=== PATIENT | female | born 1950 | race Asian ===

== ENCOUNTER 2020-10-20 13:51 | Emergency (ER) | payer OTHER, MEDICAID ==
[~2020-10-20] VITALS: Ht 152.4 cm; Wt 40.8 kg
[2020-10-20 14:33] VITALS: BP 142/84
--- NOTE | 2020-10-20 14:42 | NUR ---
70 y/o female bib son in law for cough and sob x 5 days. Pts family states + covid contact in the home. RR even and unlabored. Denies pain. Awake and alert. VSS
[2020-10-20 15:56] VITALS: BP 135/81
--- NOTE | 2020-10-20 15:56 | NUR ---
Patient discharged with v/s stable. Written and verbal after care instructions given and explained. Patient verbalized understanding. Ambulatory with steady gait. All questions addressed prior to discharge. Advised to follow up with PMD. Novel covid swab collected and sent to the lab. No other nurisng care provided in our ER.
--- NOTE | 2020-10-24 17:50 | NUR ---
Covid results received from lab. Results = POSITIVE. Hard copy requested from lab and placed in infection controls mailbox.
== END 2020-10-20 15:56 | disposition home or self-care (01) ==
LOC: MED 13:51
DX: U07.1 COVID-19 (principal)
CPT/HCPCS: 71045; 99284; U0003

== ENCOUNTER 2023-11-18 15:07 | Inpatient (IN) | payer OTHER ==
[~2023-11-18] VITALS: Ht 149.9 cm; Wt 45.4 kg
[2023-11-18 15:27] VITALS: BP 141/95; PULSE 84; RESP 18; TEMP 98.5; O2SAT 97
[2023-11-18 17:49] LABS: BASOPHILS % (AUTO) 0.7 % (0.0-2.0); EOSINOPHILS # (AUTO) 0.1 K/uL (0-0.4); HEMATOCRIT 41.2 % (36-48); HEMOGLOBIN 14.1 g/dL (12.0-16.0); LYMPHOCYTES # (AUTO) 1.7 K/uL (2.5-16.5); LYMPHOCYTES % (AUTO) 38.2 % (20.5-51.1); MEAN CORPUSCULAR HEMOGLOBIN 30 pg (27-31); MEAN CORPUSCULAR HGB CONC 34 g/dL (33-37); MEAN CORPUSCULAR VOLUME 87.9 fL (80-94); MONOCYTES # (AUTO) 0.4 K/uL (0.8-1.0); MONOCYTES % (AUTO) 8.6 % (1.7-9.3); NEUTROPHILS # (AUTO) 2.2 K/uL (1.8-7.7); NEUTROPHILS % (AUTO) 50.5 % (42.2-75.2); PLATELET COUNT (AUTO) 233 K/uL (140-450); RED BLOOD CELL COUNT(AUTO) 4.69 MIL/uL (4.20-5.40); RED CELL DISTRIBUTION WIDTH 13.3 % (11.6-13.7); WHITE BLOOD COUNT (AUTO) 4.4 K/uL (4.8-10.8)
[2023-11-18 17:57] LABS: ANION GAP 11.3 (8-16); CALCIUM 9.4 mg/dL (8.5-10.1); CARBON DIOXIDE 29.8 mmol/L (21-32); CHLORIDE 101 mmol/L (98-107); CREATININE 0.8 mg/dL (0.6-1.3); GLUCOSE 102 mg/dL (74-106); POTASSIUM 4.1 mmol/L (3.5-5.1); SODIUM SERUM 138 mmol/L (136-145); UREA NITROGEN, BLOOD 12 mg/dL (7-18)
[2023-11-18 18:10] LABS: INR 0.96 (0.8-1.2); PARTIAL THROMBOPLASTIN TIME 26.9 secs (22-35.6); PROTHROMBIN TIME 10.1 secs (10.8-13.4)
[2023-11-18] MEDS: KETOROLAC 30 MG/ML VIAL IVP ONE (18:30)
[2023-11-18] MEDS: ACETAMINOPHEN EXTRA STRENGTH 500 MG TAB PO ONE (18:40)
[2023-11-18 19:19] LABS: FLU A ANTIGEN negative (NEGATIVE); FLU B ANTIGEN NEGATIVE (NEGATIVE)
[2023-11-18 20:40] VITALS: O2SAT 98
[2023-11-18] MEDS ORDERED: NITROGLYCERIN 0.4 MG TAB SL PRN (22:50)
[2023-11-18] MEDS ORDERED: ONDANSETRON 4 MG/2 ML VIAL IVP PRN (22:50)
[2023-11-18] MEDS ORDERED: MORPHINE SULFATE 2 MG/ML SYR IVP PRN (22:50)
[2023-11-19] VITALS (7 sets, daily range): BP systolic 119–130; BP diastolic 58–66; PULSE 56–70; RESP 18–20; TEMP 97.5–98; O2SAT 97–100
[2023-11-19 06:23] LABS: BASOPHILS % (AUTO) 0.9 % (0.0-2.0); EOSINOPHILS # (AUTO) 0.1 K/uL (0-0.4); EOSINOPHILS % (AUTO) 3.1 % (0.0-4.0); HEMATOCRIT 40.1 % (36-48); HEMOGLOBIN 13.5 g/dL (12.0-16.0); LYMPHOCYTES # (AUTO) 1.5 K/uL (2.5-16.5); LYMPHOCYTES % (AUTO) 39.9 % (20.5-51.1); MEAN CORPUSCULAR HEMOGLOBIN 30 pg (27-31); MEAN CORPUSCULAR HGB CONC 34 g/dL (33-37); MEAN CORPUSCULAR VOLUME 88.1 fL (80-94); MONOCYTES # (AUTO) 0.4 K/uL (0.8-1.0); MONOCYTES % (AUTO) 10.2 % (1.7-9.3); NEUTROPHILS # (AUTO) 1.8 K/uL (1.8-7.7); NEUTROPHILS % (AUTO) 45.9 % (42.2-75.2); PLATELET COUNT (AUTO) 203 K/uL (140-450); RED BLOOD CELL COUNT(AUTO) 4.55 MIL/uL (4.20-5.40); RED CELL DISTRIBUTION WIDTH 13.5 % (11.6-13.7); WHITE BLOOD COUNT (AUTO) 3.9 K/uL (4.8-10.8)
[2023-11-19 06:44] LABS: ANION GAP 10.7 (8-16); CARBON DIOXIDE 29.1 mmol/L (21-32); CHLORIDE 104 mmol/L (98-107); CREATININE 0.8 mg/dL (0.6-1.3); GLUCOSE 95 mg/dL (74-106); POTASSIUM 3.8 mmol/L (3.5-5.1); SODIUM SERUM 140 mmol/L (136-145); UREA NITROGEN, BLOOD 10 mg/dL (7-18)
[2023-11-19] MEDS: lisinopriL 10 MG TAB PO SCH (08:40)
[2023-11-19] MEDS: DOCUSATE SODIUM 100 MG GELCAP PO SCH (08:40)
[2023-11-19] MEDS: ASPIRIN 81 MG TAB.CHEW PO SCH (08:40)
[2023-11-19] MEDS: carvediloL 3.125 MG TAB PO SCH (08:41)
[2023-11-19] MEDS: SIMVASTATIN 20 MG TAB PO SCH (20:40)
[2023-11-20] VITALS: BP 110/56; PULSE 52; PULSE 57; RESP 20; TEMP 97.7; O2SAT 98
[2023-11-20 04:00] VITALS: BP 121/66; PULSE 54; PULSE 55; RESP 20; TEMP 97.6; O2SAT 98
[2023-11-20 06:37] LABS: BASOPHILS % (AUTO) 0.5 % (0.0-2.0); EOSINOPHILS # (AUTO) 0.1 K/uL (0-0.4); EOSINOPHILS % (AUTO) 2.8 % (0.0-4.0); HEMATOCRIT 38.2 % (36-48); HEMOGLOBIN 12.7 g/dL (12.0-16.0); LYMPHOCYTES # (AUTO) 1.4 K/uL (2.5-16.5); LYMPHOCYTES % (AUTO) 37.3 % (20.5-51.1); MEAN CORPUSCULAR HEMOGLOBIN 30 pg (27-31); MEAN CORPUSCULAR HGB CONC 33 g/dL (33-37); MEAN CORPUSCULAR VOLUME 88.5 fL (80-94); MONOCYTES # (AUTO) 0.4 K/uL (0.8-1.0); MONOCYTES % (AUTO) 11.1 % (1.7-9.3); NEUTROPHILS # (AUTO) 1.8 K/uL (1.8-7.7); NEUTROPHILS % (AUTO) 48.3 % (42.2-75.2); PLATELET COUNT (AUTO) 197 K/uL (140-450); RED BLOOD CELL COUNT(AUTO) 4.32 MIL/uL (4.20-5.40); RED CELL DISTRIBUTION WIDTH 13.5 % (11.6-13.7); WHITE BLOOD COUNT (AUTO) 3.8 K/uL (4.8-10.8)
[2023-11-20 06:55] LABS: ANION GAP 11.3 (8-16); CALCIUM 8.8 mg/dL (8.5-10.1); CARBON DIOXIDE 26.7 mmol/L (21-32); CHLORIDE 105 mmol/L (98-107); CREATININE 0.8 mg/dL (0.6-1.3); GLUCOSE 93 mg/dL (74-106); SODIUM SERUM 139 mmol/L (136-145); UREA NITROGEN, BLOOD 22 mg/dL (7-18)
[2023-11-20 08:00] VITALS: BP 127/60; PULSE 59; RESP 20; TEMP 97; O2SAT 100; O2SAT 97
[2023-11-20] MEDS ORDERED: ASPI81CT95 PO (11:21)
[2023-11-20] MEDS ORDERED: SIMV-30 PO (11:21)
[2023-11-20] MEDS ORDERED: IBUP-1842 PO (11:21)
[2023-11-20] MEDS ORDERED: DULO40CA2 PO (11:21)
[2023-11-20 12:00] VITALS: BP 125/62; PULSE 60; RESP 20; TEMP 98.2; O2SAT 100
[2023-11-20 12:37] VITALS: BP 125/62; PULSE 60; RESP 20; TEMP 98.2
== END 2023-11-20 14:10 | disposition home or self-care (01) | DRG 206 ==
LOC: MED 15:07 → MTU 19:49
PROVIDERS: ADMIT Student in an Organized Health Care Education/Training Program; ATTEND Student in an Organized Health Care Education/Training Program
DX: M94.0 Chondrocostal junction syndrome [Tietze] (principal); Z20.822 Contact with and (suspected) exposure to COVID-19; E78.00 Pure hypercholesterolemia, unspecified; E78.1 Pure hyperglyceridemia
CPT/HCPCS: 36415; 71045; 80048; 83036; 83721; 83880; 84484; 85025; 85610; 85730; 87081; 93005; 96374; 97163-GP; 99285; J1885